=== PATIENT | male | born 1955 | race Caucasian/White ===

== ENCOUNTER 2016-12-21 12:58 | Inpatient (IN) | payer MEDICARE, OTHER ==
--- NOTE | ~2016-12-21 | DS ---
Unit #: [id number] #: [id number] Patient: JUANITA CARRENO [id number] [place], [place] [address] [id number] I MR#: [id number] NAME: JUANITA CARRENO ROOM: 314 Age: 61 Sex: M Admission Date: 12/21/2016 : 1955 Discharge Date: 12/26/2016 Attending Physician: Jaspreet Stewart M.D. Primary Care Physician: No Primary Care Physician DISCHARGE SUMMARY DIAGNOSES ON ADMISSION 1. Acute respiratory failure. 2. Seizure disorder. DIAGNOSES ON DISCHARGE 1. Acute respiratory failure secondary to atelectasis, resolved. 2. Acute toxic metabolic encephalopathy, improved. 3. Seizure disorder. 4. Hypertensive encephalopathy, improved. 5. Hematuria secondary to Wolfe trauma, resolved. 6. History of cerebral palsy. 7. Type 2 diabetes mellitus. 8. Hyperlipidemia. 9. Hypertension. 10. Chronic kidney disease. CONSULTATIONS 1. Dr. Stevens and in pulmonary consultation. 2. Dr. Salcedo in neurology consultation. 3. Dr. Erickson in urology consultation. DIAGNOSTIC STUDIES LABS: The patient's creatinine is 0.7, sodium 142, potassium 3.3 today. WBC is 6.4, hemoglobin 13.1, platelet count 189. Blood culture did not reveal any growth so far. IMAGING: MRI of brain was a technically limited study due to motion artifact, but there was no acute intracranially abnormality seen. The patient's left lower extremity venous Doppler did not reveal any evidence of DVT. Chest x-ray revealed no active disease. HOSPITAL COURSE This 61-year-old male was admitted to [facility] with confusion and shortness of air. Details are as per admission H and P. Altered mental status. It was likely secondary to acute encephalopathy, which could be metabolic or hypertensive. The patient's confusion has resolved. Seizure disorder. The patient was seen by neurology in consultation and was started on antiseizure medication. They have started him on Vimpat. Unit #: [id number] #: [id number] Patient: JUANITA CARRENO Gross hematuria. The patient had gross hematuria secondary to Wolfe trauma. He was seen by Dr. Erickson, who placed a catheter. Urine is clean, and catheter will be removed today. Acute respiratory failure. The patient's shortness of air resolved, and the patient was seen by Dr. Stevens in consultation. It was contributed to atelectasis Today, the patient is comfortable, is not in any acute distress. Wants to go home. DISCHARGE MEDICATIONS 1. Tylenol 650 mg p.o. q.6 hours p.r.n. 2. Vimpat 100 mg p.o. b.i.d. 3. Prozac 20 mg p.o. daily. 4. Norvasc 10 mg p.o. daily. 5. Lipitor 10 mg p.o. daily. 6. Lisinopril 20 mg p.o. daily. 7. Fish oil 1 capsule p.o. daily. 8. Invokana 100 mg p.o. daily. 9. Vitamin B12 - 1,000 mcg p.o. daily. 10. Lopressor (Metoprolol) 25 mg p.o. daily, which is started today because of the patient's elevated blood pressure. FOLLOW-UP 1. The patient is advised to follow up with primary care physician in 1 week and have a CBC and BMP done. 2. The patient is advised to follow up with Dr. Shan Miller in 3-[address] Stevens and Dr. Erickson as needed. NOTE: The plan was discussed in detail with the patient, who showed complete understanding. I also tried to call the patient's sister and was unable to reach her. Overall, the patient is doing much better. I have discussed with care management, who stated that the patient lives by himself, but his sister lives next door, and she assists him. We will arrange home health regarding home PT, OT and nursing. Dictated by... Mayi Jenkins TD: 12/26/2016 12:06 JOB #: [id number] DISCHARGE SUMMARY X Jaspreet Stewart MD DISCHARGE SUMMARY
--- NOTE | ~2016-12-21 | EKG ---
PATIENT: JUANITA CARRENO UNIT #: [id number] Ventricular Rate: 93 BPM Atrial Rate: 93 BPM P-R Interval: 152 ms QRS Duration: 96 ms Q-T Interval: 368 ms QTC Calculation(Bezet): 457 ms P Hermann: 83 degrees Calculated R Hermann: 14 degrees Calculated T Hermann: 36 degrees Diagnosis Line: Normal sinus rhythm Diagnosis Line: Possible Inferior infarct , age undetermined Diagnosis Line: Abnormal ECG Diagnosis Line: When compared with ECG of 31-OCT-2015 14:09, Diagnosis Line: QRS duration has decreased Diagnosis Line: Nonspecific T wave abnormality now evident in Diagnosis Line: Inferior leads Diagnosis Line: Nonspecific T wave abnormality now evident in Diagnosis Line: Lateral leads Diagnosis Line: Confirmed by JENN REYEZ MD ([id number]) on Diagnosis Line: 12/23/2016 12:03:46 AM INTERPRETING MD: DEREJE VINES
--- NOTE | ~2016-12-21 | HP ---
Unit #: [id number] #: [id number] Patient: JUANITA CARRENO [id number] [place], [place] [address] [id number] MR#: [id number] NAME: JUANITA CARRENO ROOM: Age: 61 Sex: M Admission Date: 12/21/2016 : 1955 Attending Physician: Ted Schmid M.D. Primary Care Physician: No Primary Care Physician HISTORY AND PHYSICAL CHIEF COMPLAINT The altered mental status. HISTORY OF PRESENT ILLNESS The patient is a 61-year-old male with a past medical history of cerebral palsy, diabetes and hypertension, hyperlipidemia, brought to the emergency room status post altered mental status. The patient is in a postictal state and is unable to provide any history and the history is obtained by speaking to the R.N. at the bedside and the family members at the bedside. The patient was at a store earlier this morning and had a seizure witnessed by a bystander. The seizure was tonic-clonic generalized and lasted one to two minutes. The patient was brought to the emergency room and the patient had a glucose of 412 per EMS at the time of arrival. The patient had another seizure in the emergency room that lasted four minutes. The patient received the Ativan 1 mg IV for the seizures. The patient has received the Keppra 1.5 g IV and had a CT of the head that shows prominent lateral ventricles. The patient received the regular insulin 8 units in the emergency room. The patient was more sedated and was about to be intubated in the emergency room; however, the patient had a gag reflex and the patient was not intubated and put on the facemask. The patient became more agitated and was trying to pull out the IV lines. The patient received another IV Ativan 1 mg and patient is postictal at this time. The patient is on 6 L of oxygen and the patient had an ABG that showed the pH of 7.1, pCO2 of 31 and pO2 of 33.9. The patient's chest x-ray is negative for any acute disease. The patient is being admitted for the above reasons. No history of fever. No history of chills. No history of nausea, vomiting or tongue bite. The patient has no new medications. PAST MEDICAL HISTORY History of a cerebral palsy, diabetes, hypertension, hyperlipidemia, chronic kidney disease. PAST SURGICAL HISTORY None. SOCIAL HISTORY The patient lives alone. Family checks on him frequently. He quit smoking. He does not drink alcohol. He is on disability. FAMILY HISTORY Family history is positive for the coronary artery disease. Unit #: [id number] #: [id number] Patient: JUANITA CARRENO ALLERGIES No known drug allergies. HOME MEDICATIONS Home medications from the records include Invokana, Norvasc, lisinopril, fluoxetine and Lipitor. REVIEW OF SYMPTOMS Unable to perform. PHYSICAL EXAMINATION GENERAL APPEARANCE: On examination the patient is lying on a bed not in acute distress. VITAL SIGNS: Temperature 96.5, pulse 95, respiratory rate 16, blood pressure 212/103, sating 91% at 2 L nasal cannula at the time of arrival. HEENT: Head atraumatic, normocephalic. Pupils equal, round and reacting to light and accommodation. Extraocular movements are intact. Dry mucous membranes. NECK: Supple. LUNGS: Coarse breath sounds. Decreased air entry. HEART: Regular rate and rhythm. ABDOMEN: Soft, positive bowel sounds. EXTREMITIES: No cyanosis. No clubbing. NEUROLOGIC: Patient is in postictal state and unable to follow the verbal commands. PSYCHIATRIC: Unable to assess. DIAGNOSTIC STUDIES LABORATORY DATA: Glucose 493, BUN 22, creatinine 1.2, sodium 135, potassium 3.2, chloride 96, bicarb 28, calcium 9.2, total protein 7.5, albumin 4, AST 20, ALT 18, alkaline phosphatase 172 and lactic acid is 1.9 and alcohol level is less than 11, troponin less than 0.05, WBC 8.7, hemoglobin 15.9, hematocrit 48.5 and platelets 224. Urine tox is negative and UA shows 3+ protein, glucose 1000. ASSESSMENT 1. Altered mental status. 2. Seizures. 3. Acute respiratory failure on 6 L of oxygen. 4. Uncontrolled diabetes mellitus. PLAN 1. Plan to admit the patient to the inpatient with the telemetry. Patient will receive the IV fluids normal saline at 100 mL per hour. 2. Continue with the Vimpat as ordered by Neurology with Dr. Salcedo. Will consult Dr. Salcedo for the full official consult. 3. The patient will receive the pulmonary consult for the acute respiratory failure on 6 L of oxygen. 4. Replace the potassium per protocol. 5. Continue with Ativan p.r.n. for the seizures. 6. Check the EEG. 7. Continue with the sliding scale and Accu-Cheks for sugars. 8. Replace the potassium per protocol. 9. Further recommendations will follow as more lab results are available. Unit #: [id number] #: [id number] Patient: JUANITA CARRENO Dictated by Mayi Renee/mayela TD: 12/21/2016 19:17 JOB #: [id number] HISTORY AND PHYSICAL X X HISTORY AND PHYSICAL
--- NOTE | ~2016-12-21 | CT71 ---
[facility] A Service of [facility] & [facility] RADIOLOGY TEXT RESULTS PATIENT: JUANITA CARRENO LOCATION: [facility] 314-01 : 55 UNIT #: [id number] AGE: [address]: Kenzie Dumas MD SEX: M ORDER DR: [id number] [facility] [address] [facility]. [place], [place] [address] [id number] I MR#: [id number] Acc #: [id number] NAME: JUANITA CARRENO : 1955 SEX: M STUDY DATE/TIME: 12/21/2016 13:41 UNIT: A U ROOM: [facility] STUDY DESCRIPTION: CT Head Wo Contrast Attending Physician: Kenzie Dumas M.D. Ordering Physician: Billy Ruano M.D. Primary Care Physician: Primary Care Physician No MEDICAL IMAGING REPORT This report is preliminary unless electronic signature is present EXAM CT scan head without contrast. INDICATIONS Seizure this morning, patient unresponsive with lethargy. This CT exam was performed with one or more of the following radiation dose reduction techniques: automatic exposure control, adjustment of mA and/or kV according to patient size, and iterative reconstruction. FINDINGS Unenhanced images and brain. Ventriculomegaly involving the lateral ventricles. There is no mass or extraaxial fluid collection or hemorrhage. IMPRESSION Prominent lateral ventricles otherwise normal. Dictated by... Mike Cruz M.D. THIS IS AN ELECTRONICALLY VERIFIED REPORT Mike Cruz M.D. at 12/22/2016 3:07 PM Prabhakar TD: 12/22/2016 06:42 JOB #: [id number] MEDICAL IMAGING REPORT COPY
--- NOTE | ~2016-12-21 | CR72 ---
[facility] A Service of [facility] & [facility] RADIOLOGY TEXT RESULTS PATIENT: JUANITA CARRENO LOCATION: [facility] 314-01 : [birth year] UNIT #: [id number] AGE: [address]: Kenzie Dumas MD SEX: M ORDER DR: [id number] [facility] [address] [facility] [place], [place] [address] [id number] I MR#: [id number] Acc #: [id number] NAME: JUANITA CARRENO : 1955 SEX: M STUDY DATE/TIME: 12/21/2016 12:37 UNIT: [address] ROOM: [facility] STUDY DESCRIPTION: CR Chest Single View Portable Attending Physician: Kenzie Dumas M.D. Ordering Physician: Ed Doctor [id number] [facility] Primary Care Physician: Primary Care Physician No MEDICAL IMAGING REPORT This report is preliminary unless electronic signature is present EXAM Portable chest. HISTORY Shortness of air and hypoxia starting today. COMPARISON 01/30/2016. FINDINGS A portable view of the chest was obtained. The heart size and vascularity are normal. The lungs are clear. The bones are unremarkable. IMPRESSION No active disease. Dictated by... Mike Cruz M.D. THIS IS AN ELECTRONICALLY VERIFIED REPORT Mike Cruz M.D. at 12/22/2016 3:07 PM Prabhakar TD: 12/22/2016 06:26 JOB #: [id number] MEDICAL IMAGING REPORT COPY
--- NOTE | ~2016-12-21 | CO ---
Unit #: [id number] #: [id number] Patient: JUANITA CARRENO [id number] [address] [place], [place] [address] [id number] I MR#: [id number] NAME: JUANITA CARRENO ROOM: 314 Age: 61 Sex: M Admission Date: 12/21/2016 : 1955 Attending Physician: Jaspreet Stewart M.D. Consultation Date: 12/22/2016 CONSULTATION REPORT HISTORY OF PRESENT ILLNESS Mr. Carreno is a 61-year-old white male with a history of cerebral palsy, who was admitted in a postictal state, receiving noninvasive ventilation for a short period of time. He is now stable on room air on nasal cannula. Initially, had a pH of 7.1, CO2 of 31, and O2 of 33. Chest x-ray showed no acute disease. He apparently has had seizures for some time in the past. PAST MEDICAL HISTORY Significant for history of cerebral palsy, diabetes, hypertension, hyperlipidemia, and chronic kidney disease. SOCIAL HISTORY He lives alone. Quit smoking. Does not drink and is on disability. FAMILY HISTORY Positive for coronary artery disease. ALLERGIES No allergies. HOME MEDICATIONS Include Invokana, Norvasc, lisinopril, fluoxetine, and Lipitor. REVIEW OF SYSTEMS Unable to be performed due to his mental state. PHYSICAL EXAMINATION VITAL SIGNS: Stable. GENERAL: He is postictal and noncommunicative. Somewhat agitated and unable to respond to questioning, but in no acute respiratory distress. HEAD AND NECK: Head is atraumatic and normocephalic. Nasal and oral mucosa were clear. Pupils are equal, round, and reactive, and sclerae are normal. Neck was supple without significant supraclavicular or cervical adenopathy. He has a very matthews built and there is increased AP diameter of the chest and diminished breath sounds at the bases. HEART: Shows regular rhythm and no significant murmur. ABDOMEN: Obese, soft, nontender with no hepatomegaly or enlargement of the spleen. He continues to be postictal and is able to follow verbal commands. Does not seem to have any focal neurologic defects at this time. DIAGNOSTIC STUDIES LABORATORY RESULTS: Shows pH of 7.37, CO2 of 36, O2 of 64. At this time, Unit #: [id number] #: [id number] Patient: JUANITA CARRENO his sats are adequate. Creatinine was 1.0. Glucose 2.5, BUN of 21. Sodium 143, potassium 4.4, chloride 105, CO2 of 30. Slight elevation of alkaline phosphatase and amylase. Alcohol content was normal. Past TSH was 0.88. White count 9.8, hemoglobin 14.3. IMPRESSION His pulmonary status is stable at this time. He may benefit from outpatient evaluation for obstructive sleep apnea. Thank you very much for allowing us to participate in his care. Dictated by... Mayi Fairchild/russell TD: 12/22/2016 19:55 JOB #: [id number] CONSULTATION REPORT X Shan Schumacher MD X CONSULTATION REPORT
--- NOTE | ~2016-12-21 | CO ---
Unit #: [id number] #: [id number] Patient: JUANITA CARRENO [id number] [address] [place], [place] [address] [id number] I MR#: [id number] NAME: JUANITA CARRENO ROOM: 314 Age: 61 Sex: M Admission Date: 12/21/2016 : 1955 Attending Physician: Jsapreet Stewart M.D. Consultation Date: 12/22/2016 CONSULTATION REPORT REASON FOR CONSULTATION Bright red blood per urethra. HISTORY OF PRESENT ILLNESS Mr. Carreno is a 61-year-old man with mild cerebral palsy and a history of diabetes, who presented to the ER yesterday with new onset seizure disorder. During his workup, a Wolfe catheter was placed. The Wolfe catheter was inadvertently dislodged by the patient when he became agitated overnight. Thereafter, he had severe bright red blood passing per urethra. He was placed in the diaper and had low urine output. A urology consultation was requested. The patient is noncommunicative at this time and there was no urologic history available. No family members were present. PAST MEDICAL HISTORY 1. Hypertension. 2. Diabetes type 2. 3. Mild cerebral palsy. 4. Seizures. PAST SURGICAL HISTORY None known. MEDICATIONS See MAR. ALLERGIES See med list. SOCIAL HISTORY The patient is an active smoker. He lives alone. PHYSICAL EXAMINATION VITAL SIGNS: Temp 98.8, pulse 95, respiratory rate 20, BP 146/75. GENERAL: No apparent distress, appears as stated age. Well nourished. He is currently sedated with Ativan and mittens to prevent dislodging IV. CHEST: Normal respiratory effort. No use of accessory muscles. ABDOMEN: Soft, nontender, nondistended. : Penis normal. Uncircumcised. Normal meatus. He does have blood that is seen draining from the urethral meatus. DIAGNOSTIC STUDIES LABORATORY RESULTS: Creatinine 1.0, white blood cell count 9.8, hemoglobin 14.3. Unit #: [id number] #: [id number] Patient: JUANITA CARRENO ASSESSMENT AND PLAN Mr. Carreno is a 61-year-old man, who recently developed new onset seizures and he has been agitated as a result. His Wolfe catheter was dislodged. An 18-Turkmen Coude catheter was passed through the urethra without difficulty in sterile fashion and the balloon was inflated with 10 mL. Light pink urine drained from his bladder. Leave Wolfe intact for 7 days. Voiding trial at that time either as inpatient or outpatient. Please call for any questions or concerns. Dictated by... Hunter Claros M.D. GILLES/russell TD: 12/22/2016 13:41 JOB #: [id number] CONSULTATION REPORT X X CONSULTATION REPORT
--- NOTE | ~2016-12-21 | MR17 ---
[facility] A Service of [facility] RADIOLOGY TEXT RESULTS PATIENT: JUANITA CARRENO LOCATION: [facility] 314-01 : 55 UNIT #: [id number] AGE: [address]: Jaspreet Stewart MD SEX: M ORDER DR: [id number] [facility] [address] [place], [place] [address] [id number] I MR#: [id number] Acc #: [id number] NAME: JUANITA CARRENO : 1955 SEX: M STUDY DATE/TIME: 12/24/2016 17:43 UNIT: C3A PCU ROOM: [facility] STUDY DESCRIPTION: MR Brain WWo Contrast Attending Physician: Jaspreet Stewart M.D. Ordering Physician: Monique Salcedo M.D. Primary Care Physician: No Primary Care Physician MRI CENTER REPORT This report is preliminary unless electronic signature is present. EXAM MRI of the brain with and without contrast. HISTORY 61-year-old male with a history of cerebral palsy. History of tonic clonic seizure, 12/21/2016, confusion. COMPARISON Head CT, 12/21/2016. FINDINGS Multiplanar, multiecho imaging was performed of the brain to include axial T1-weighted images following IV gadolinium. Diffusion weighted imaging was also obtained. Coronal T2 and coronal T1-weighted images post wojciech were obtained. Study is significantly degraded due to motion artifact. This obscures fine anatomic detail. There is ventriculomegaly, most likely indicative of central volume loss. No effacement of the overlying sulci to suggest hydrocephalus or increased intracranial pressure. No mass, mass effect, or midline shift. No hemorrhage. There is a small T2 hyperintensity within the left periventricular white matter, nonspecific, may represent an area of gliosis or sequela of previous vascular insult. Postcontrast imaging demonstrates no abnormal enhancement. Normal intracranial flow voids. Bony calvaria, skull base, mastoids, sinuses unremarkable. No areas of restricted diffusion identified. IMPRESSION 1. Technically limited study due to motion artifact. No acute intracranial abnormality identified. 2. Central atrophy. [facility] A Service of [facility] RADIOLOGY TEXT RESULTS PATIENT: JAUNITA CARRENO LOCATION: A 314-01 : 55 UNIT #: [id number] AGE: [address]: Jaspreet Stewart MD SEX: M ORDER DR: Dictated by... Rob Curran M.D. THIS IS AN ELECTRONICALLY VERIFIED REPORT Rob Curran M.D. at 12/25/2016 2:06 PM MEGAN/bernadine TD: 12/25/2016 09:51 JOB #: [id number] MRI CENTER REPORT COPY
--- NOTE | ~2016-12-21 | US85 ---
[facility] A Service of [facility] RADIOLOGY TEXT RESULTS PATIENT: JUANITA CARRENO LOCATION: [facility] 314 : 55 UNIT #: [id number] AGE: [address]: Jaspreet Stewart MD SEX: M ORDER DR: [id number] [facility] [address] [facility]. [place], [place] [address] [id number] I MR#: [id number] Acc #: [id number] NAME: JUANITA CARRENO : 1955 SEX: M STUDY DATE/TIME: 12/24/2016 8:21 UNIT: C3A PCU ROOM: [address] [place] [address] DESCRIPTION: US LE Veins Unilat or Ltd Stdy Attending Physician: Jaspreet Stewart M.D. Ordering Physician: Alejandro Stevens M.D. Primary Care Physician: No Primary Care Physician MEDICAL IMAGING REPORT This report is preliminary unless electronic signature is present EXAM Left lower extremity venous duplex, 12/24/2016. HISTORY Left lower extremity edema for 2 days with elevated D-dimer greater than 500. Evaluate for deep vein thrombosis. TECHNIQUE Venous ultrasound examination of the left lower extremity was performed using grayscale, spectral Doppler and color flow Doppler imaging. FINDINGS The examination is negative. There is no evidence of left lower extremity deep venous thrombus from the groin to the lower calf. Visualized greater saphenous vein is also patent. IMPRESSION Negative examination. No evidence of left lower extremity deep venous thrombosis. Dictated by... Rom Bearden M.D. THIS IS AN ELECTRONICALLY VERIFIED REPORT Rom Bearden M.D. at 12/25/2016 7:54 AM KRT/bernadine TD: 12/24/2016 12:58 JOB #: [id number] MEDICAL IMAGING REPORT [facility] A Service [facility] RADIOLOGY TEXT RESULTS PATIENT: JUANITA CARRENO LOCATION: [facility] 314 : 55 UNIT #: [id number] AGE: [address]: Jaspreet Stewart MD SEX: M ORDER DR: COPY
--- NOTE | ~2016-12-21 | CO ---
Unit #: [id number] #: [id number] Patient: JUANITA CARRENO [id number] [facility] [address] [place], [place] [address] [id number] Jean-Pierre MR#: [id number] NAME: JUANITA CARRENO ROOM: 314 Age: 61 Sex: M Admission Date: 12/21/2016 : 1955 Attending Physician: Jaspreet Stewart M.D. Consultation Date: 12/22/2016 CONSULTATION REPORT REASON FOR STUDY Seizures. PATIENT IDENTIFICATION This is a 61-year-old white male, who is evaluated on room 314 at [facility]. SOURCE OF INFORMATION The medical records and my discussion with the patient's sister, Ms. Anupama Temple. REASON FOR CONSULTATION Seizure. PROBLEM LIST 1. History of cerebral palsy. 2. Prior admission in this hospital for respiratory issues and sepsis. 3. Hyperglycemia. 4. Diabetes, known. 5. Hypertension. 6. Hyperlipidemia. 7. Chronic kidney disease. HISTORY OF PRESENT ILLNESS This is a 61-year-old gentleman, who actually was brought in yesterday and he had multiple seizures. He had prolonged seizure ended up with Ativan and also with Keppra and then Vimpat was added. He got 1.5 g of Keppra. Apparently, the seizure stopped, but he is very confused and agitated, belligerent, he even pulled his Wolfe with the balloon inflated. He has been given some Ativan. There is nothing suggesting fever. There is no significant white count. There are no signs of meningismus. His blood pressure was significantly elevated at 212 systolic and 103 diastolic. His current working diagnoses are altered mental status, seizures, and respiratory issues. He has been put on 6 L of oxygen and uncontrolled diabetes, who yesterday came with the level of 493. When I talked to his sister, she reported that the gentleman did fairly well after being discharge in 10/2015, but then he refused followup and did not take medications apparently. He has never had any known seizures. He is getting worse overtime and it looks like they lost a brother to dementia probably of Alzheimer type and Unit #: [id number] #: [id number] Patient: JUANITA CARRENO he has been showing some signs of cognitive decline overtime. No insect bites. No head injury or trauma or other issues. He does have a cerebral palsy of type not known. PAST MEDICAL HISTORY As discussed above. PAST SURGICAL HISTORY None. ALLERGIES None. HOME MEDICATIONS Apparently may not be taking any medication, but supposedly on Invokana, Norvasc, lisinopril, fluoxetine, Lipitor. FAMILY HISTORY Coronary artery disease and dementia. SOCIAL HISTORY Apparently lives alone. He is single. His family checked on him. He does have withdrawal. He quit smoking. There is no alcohol or drug use known to us. REVIEW OF SYSTEMS Could not be possible right now because of his sedated and encephalopathic state. PHYSICAL EXAMINATION VITAL SIGNS: Temperature 97.4, pulse 81, respirations 18, blood pressure 202/72, O2 saturations were 88% to 100%, weight of 200 pounds, BMI was 32. NEUROLOGIC: The patient is obtunded. He did tell me his name. He did not tell me where he was or what today's date is. He followed some very simple commands. He is still very agitated. His hands are restrained and in mittens. Cranial examination very questionable. Respond to threats in primary bobo. Pupils are dilated about 4 mm, very sluggish. Full bobo are questionable. Eye movements seem to be conjugate. I did not see any ptosis. I did not see any nystagmus. Extraocular movements spontaneously intact. I did not see any facial asymmetry. Hearing is questionable. Normal tongue was midline. I could not visualize oropharynx or uvula. Head turning was spontaneous. No neck stiffness was seen. Motor examination demonstrated normal bulk and tone. He is withdrawing forcefully strength of at least 4+/5. Sensory examination intact for pain sensation and withdrawal. I cannot do any further examination. Romberg could not be evaluated. I could not get any reflexes. Toes are questionable. Gait and coordination could not be evaluated. IMAGING STUDIES LABORATORY RESULTS: Reviewed. IMAGING STUDIES: Reviewed. Unit #: [id number] #: [id number] Patient: JUANITA CARRENO IMPRESSION 1. Multiple seizures, very nonspecific hypertensive encephalopathy, significant hyperglycemia, and history of cerebral palsy. 2. No prior history of seizures. 3. Since no further seizure was reported, I will discontinue the Vimpat. I will check his labs. I will check an EEG. I will check an MRI, so far nothing suggesting [employer] WORK[employer] infection versus hypertensive encephalopathy type situation that is a possibility. I will see how things go and if he starts seizing, then further evaluation will be done accordingly and treatment would be done accordingly and I will talk to the family regarding future course of action and treatment options and I will follow him closely. Dictated by... Mayi Crews/russell TD: 12/22/2016 22:50 JOB #: [id number] CONSULTATION REPORT X Monique Salcedo MD X CONSULTATION REPORT
--- NOTE | ~2016-12-21 | EE ---
Unit #: [id number] #: [id number] Patient: JUANITA CARRENO [id number] [address] [address] [id number] MR#: [id number] NAME: JUANITA CARRENO : 1955 SEX: M STUDY DATE/TIME: 12/23/2016 UNIT: C3A PCU ROOM: [facility] STUDY DESCRIPTION: EEG Attending Physician: Jaspreet Stewart M.D. Referring Physician: Monique Salcedo M.D. Primary Care Physician: No Primary Care Physician NEURODIAGNOSTICS REPORT EXAM EEG REASON FOR THE STUDY Seizures. No prior EEG available. EEG DESCRIPTION This is an inpatient, digitally recorded multi-montage adult EEG with leads placed according to the International 10-20 System. Hyperventilation and photic stimulation was not done. The patient was sedated before the EEG. The background was about 5 to 7 Hz. The patient did become further drowsy and stage 2 sleep was seen. When the patient woke up, he was very agitated and moving. The study was terminated upon patient request at about 16 minutes. I did not see any seizures, interictal discharges or clinical events. No other episodes were seen. IMPRESSION This is an abnormal EEG showing mild diffuse slowing which is indicative of encephalopathy that is nonspecific. Nothing suggesting seizure or status or interictal discharges. An EEG like this does not rule out epilepsy. Clinical correlation is recommended. Dictated by... Mayi Crews/carlos TD: 12/24/2016 05:50 JOB #: [id number] Unit #: [id number] #: [id number] Patient: JUANITA CARRENO NEURODIAGNOSTICS REPORT X Monique Salcedo MD NEURODIAGNOSTICS REPORT
[2016-12-21 12:23] LABS: BASOPHIL# 0.1 X10e3 (0-0.3); BASOPHIL% 0.9 % (0-2.5); EOSINOPHIL# 0.3 X10e3 (0-0.7); HEMATOCRIT 48.5 % (38.0-50.0); HEMOGLOBIN 15.9 gm/dL (13.0-16.0); LYMPHOCYTE# 2.4 X10e3 (1.0-3.5); LYMPHOCYTE% 27.9 % (17.0-45.0); MEAN CELL VOLUME 88.6 FL (83-96); MEAN CORPUSCULAR HEMOGLOBIN 29.1 PG (28-34); MEAN CORPUSCULAR HGB CONC 32.8 g/dL (30-36); MEAN PLATELET VOLUME 8.3 FL (6.5-11.5); MONOCYTE# 0.8 X10e3 (0-1.0); MONOCYTE% 9.4 % (3.0-12.0); NEUTROPHIL# 5.1 X10e3 (1.5-7.1); NEUTROPHIL% 58.8 % (40-75); PLATELET COUNT 224 X10e3 (140-420); RED BLOOD COUNT 5.48 X10e (3.90-5.60); RED CELL DISTRIBUTION WIDTH 13.3 % (11.0-15.5); WHITE BLOOD COUNT 8.7 X10e3 (4.0-10.5)
[2016-12-21 12:24] LABS: DIFF IND NO
[2016-12-21 12:33] LABS: POC - CKMB 1.1 ng/mL (0.0-7.9); POC - TROPONIN <0.05 ng/mL (<=0.05)
[2016-12-21 12:43] LABS: ALKALINE PHOSPHATASE 172 U/L (32-92); ALT (SGPT) 18 U/L (10-40); AST (SGOT) 20 U/L (10-42); BILIRUBIN, DIRECT 0.1 mg/dL (0.0-0.2); BILIRUBIN,INDIRECT 0.5 mg/dL (0.0-0.9); BILIRUBIN,TOTAL 0.6 mg/dL (0.2-2.0); BLOOD UREA NITROGEN 22 mg/dL (9-23); BUN/CREATININE RATIO 18.33; CALCIUM SERUM 9.2 mg/dL (8.4-10.2); CARBON DIOXIDE 28 mmol/L (22-31); CHLORIDE 96 mmol/L (100-111); CREATININE SERUM 1.2 mg/dL (0.6-1.4); GLOM FILT RATE Estimated ABOVE60 mL/min (>60); GLUCOSE FASTING 493 mg/dL (70-110); POTASSIUM 3.2 mmol/L (3.5-5.1); PROTEIN TOTAL SERUM 7.5 g/dL (6.0-8.3); SODIUM 135 mmol/L (135-145)
[2016-12-21 12:44] LABS: ALCOHOL BLOOD <5 mg/dL (0)
[~2016-12-21 12:58] MED LIST: AMLODIPINE BESY10 MG PO; ATORVASTATIN CA10 MG PO; FISH OIL 1,2001 CAP PO; FLUOXETINE HCL20 M1 PO; INVOKANA100 MG PO; LISINOPRIL20 MG PO
[2016-12-21 15:59] LABS: URINE SOURCE CLEAN CATCH
[2016-12-21 16:06] LABS: URINE APPEARANCE CLEAR; URINE BILIRUBIN NEG (NEG); URINE BLOOD NEG (NEG); URINE COLOR YELLOW; URINE GLUCOSE >1000 MG/DL (NEG); URINE KETONE NEG (NEG); URINE LEUKOCYTE ESTERASE NEG (NEG); URINE NITRATE NEG (NEG); URINE PROTEIN 3+ (NEG); URINE SPECIFIC GRAVITY 1.033 (1.003-1.035); URINE UROBILINOGEN 0.2 MG/DL (NEG)
[2016-12-21 16:11] LABS: U HYALINE CASTS AUWI 0-2 /[LPF]; URBCS1 AUWI 0-2 /[HPF] (0-2); URINE BACTERIA AUWI NEG (NEGATIVE); URINE SQUAMOUS EPITHELIAL CELL NONE SEEN /[HPF]
[2016-12-21 16:15] LABS: AMPHETAMINE NEG (NEG); BARBITURATES NEG (NEG); BENZODIAZEPINES NEG (NEG); COCAINE NEG (NEG); MARIJUANA NEG (NEG); OPIATES NEG (NEG); TRICYCLIC ANTIDEPRESSANTS NEG (NEG); U METHADONE NEG (NEG)
[2016-12-21 16:16] LABS: CULTURE INDICATED? NO
[2016-12-22 06:47] LABS: BASOPHIL# 0.1 X10e3 (0-0.3); BASOPHIL% 0.5 % (0-2.5); EOSINOPHIL# 0.1 X10e3 (0-0.7); EOSINOPHIL% 0.7 % (0.0-7.0); HEMATOCRIT 42.6 % (38.0-50.0); HEMOGLOBIN 14.3 gm/dL (13.0-16.0); LYMPHOCYTE# 1.5 X10e3 (1.0-3.5); LYMPHOCYTE% 15.4 % (17.0-45.0); MEAN CELL VOLUME 87.3 FL (83-96); MEAN CORPUSCULAR HEMOGLOBIN 29.3 PG (28-34); MEAN CORPUSCULAR HGB CONC 33.5 g/dL (30-36); MONOCYTE# 0.9 X10e3 (0-1.0); MONOCYTE% 9.4 % (3.0-12.0); NEUTROPHIL# 7.3 X10e3 (1.5-7.1); PLATELET COUNT 194 X10e3 (140-420); RED BLOOD COUNT 4.88 X10e (3.90-5.60); RED CELL DISTRIBUTION WIDTH 13.7 % (11.0-15.5); WHITE BLOOD COUNT 9.8 X10e3 (4.0-10.5)
[2016-12-22 06:52] LABS: DIFF IND NO
[2016-12-22 07:12] LABS: BLOOD UREA NITROGEN 21 mg/dL (9-23); CALCIUM SERUM 8.7 mg/dL (8.4-10.2); CARBON DIOXIDE 30 mmol/L (22-31); CHLORIDE 105 mmol/L (100-111); GLOM FILT RATE Estimated ABOVE60 mL/min (>60); GLUCOSE FASTING 215 mg/dL (70-110); POTASSIUM 4.5 mmol/L (3.5-5.1); SODIUM 143 mmol/L (135-145)
[2016-12-22 16:49] LABS: FOLATE (FOLIC ACID) 21.9 ng/mL (>5.8)
[2016-12-23 09:55] LABS: ARTERIAL BLD GAS O2 SATURATION 56.6 % (90.0-100.0); ARTERIAL BLOOD GAS CARBOXY HB 0.9 %sat (0.0-9.0); ARTERIAL BLOOD GAS HCO3 10.7 mmol/L; ARTERIAL BLOOD GAS MET HB 1.8 %sat (0.0-2.0); ARTERIAL BLOOD GAS PCO2 31.4 mmHg (35.0-45.0)
[2016-12-23 09:57] LABS: ARTERIAL BLOOD GAS DELIVERY VENTURI MASK; ARTERIAL BLOOD GAS PO2 33.9 mmHg (80.0-100); ARTERIAL DRAW? NO
[2016-12-23 10:56] LABS: MAGNESIUM 1.8 mg/dL (1.6-3.0); POTASSIUM 3.7 mmol/L (3.5-5.1)
[2016-12-24 06:15] LABS: HEMATOCRIT 42.8 % (38.0-50.0); HEMOGLOBIN 13.9 gm/dL (13.0-16.0); MEAN CELL VOLUME 88.2 FL (83-96); MEAN CORPUSCULAR HEMOGLOBIN 28.7 PG (28-34); MEAN CORPUSCULAR HGB CONC 32.5 g/dL (30-36); RED BLOOD COUNT 4.85 X10e (3.90-5.60); RED CELL DISTRIBUTION WIDTH 13.3 % (11.0-15.5); WHITE BLOOD COUNT 7.8 X10e3 (4.0-10.5)
[2016-12-24 07:21] LABS: BLOOD UREA NITROGEN 15 mg/dL (9-23); BUN/CREATININE RATIO 21.42; CALCIUM SERUM 8.7 mg/dL (8.4-10.2); CARBON DIOXIDE 30 mmol/L (22-31); CHLORIDE 104 mmol/L (100-111); CREATININE SERUM 0.7 mg/dL (0.6-1.4); GLOM FILT RATE Estimated ABOVE60 mL/min (>60); GLUCOSE FASTING 158 mg/dL (70-110); POTASSIUM 3.8 mmol/L (3.5-5.1); SODIUM 143 mmol/L (135-145)
[2016-12-25 06:36] LABS: MAGNESIUM 1.7 mg/dL (1.6-3.0); POTASSIUM 3.4 mmol/L (3.5-5.1)
[2016-12-26 06:30] LABS: HEMATOCRIT 39.8 % (38.0-50.0); HEMOGLOBIN 13.1 gm/dL (13.0-16.0); MEAN CELL VOLUME 88.2 FL (83-96); MEAN CORPUSCULAR HEMOGLOBIN 29.1 PG (28-34); MEAN CORPUSCULAR HGB CONC 32.9 g/dL (30-36); MEAN PLATELET VOLUME 8.3 FL (6.5-11.5); RED BLOOD COUNT 4.51 X10e (3.90-5.60); RED CELL DISTRIBUTION WIDTH 13.2 % (11.0-15.5); WHITE BLOOD COUNT 6.4 X10e3 (4.0-10.5)
[2016-12-26 07:14] LABS: BLOOD UREA NITROGEN 10 mg/dL (9-23); BUN/CREATININE RATIO 14.28; CALCIUM SERUM 8.8 mg/dL (8.4-10.2); CARBON DIOXIDE 27 mmol/L (22-31); CHLORIDE 104 mmol/L (100-111); CREATININE SERUM 0.7 mg/dL (0.6-1.4); GLOM FILT RATE Estimated ABOVE60 mL/min (>60); GLUCOSE FASTING 184 mg/dL (70-110); MAGNESIUM 1.7 mg/dL (1.6-3.0); POTASSIUM 3.3 mmol/L (3.5-5.1); SODIUM 142 mmol/L (135-145)
[2016-12-26] MEDS ORDERED: VIMPAT100 MG PO (11:49)
[2016-12-26] MEDS ORDERED: ACETAMINOPHEN650 M3 PO (11:49)
[2016-12-26] MEDS ORDERED: METOPROLOL TAR25 MG PO (11:50)
[2016-12-26] MEDS ORDERED: B-121000 MC1 PO (11:50)
== END 2016-12-26 16:30 | disposition home health service (06) | DRG 100 ==
LOC: CED 12:58 → C3A PCU 18:24
PROVIDERS: Emergency Medicine; Family Medicine; Internal Medicine; Psychiatry & Neurology Neurology
PROC: 5A0945Z Assistance with Respiratory Ventilation, 24-96 Consecutive Hours (ICD-10-PCS; principal; 2016-12-21)
DX: G40.409 Other generalized epilepsy and epileptic syndromes, not intractable, without status epilepticus (principal); G92 Toxic encephalopathy; J96.00 Acute respiratory failure, unspecified whether with hypoxia or hypercapnia; I67.4 Hypertensive encephalopathy; J98.11 Atelectasis; T83.83XA Hemorrhage due to genitourinary prosthetic devices, implants and grafts, initial encounter; G80.9 Cerebral palsy, unspecified; R31.0 Gross hematuria; E11.65 Type 2 diabetes mellitus with hyperglycemia; I12.9 Hypertensive chronic kidney disease with stage 1 through stage 4 chronic kidney disease, or unspecified chronic kidney disease; N18.9 Chronic kidney disease, unspecified; E78.5 Hyperlipidemia, unspecified; Z82.49 Family history of ischemic heart disease and other diseases of the circulatory system; Z87.891 Personal history of nicotine dependence; Z79.84 Long term (current) use of oral hypoglycemic drugs
CPT/HCPCS: 70450; 70553; 71010; 80048; 80076; 80307; 81003; 82553; 82607; 82746; 82803; 82947; 83605; 83735; 84132; 84484; 85025; 85027; 85379; 87040; 93005; 93971; 94640; 94760; 95816; 96361; 96374; 96375; 97163; 97165; 99285; A9577; C9254; G0480; G8978-GP; G8979-GP; G8980-GP; G8987-GO; G8988-GO; G8989-GO; J0360; J1630; J1650; J1815; J1953; J2060; J2405; J3420; J3475